=== PATIENT | female | born 1990 | race Caucasian/White ===

== ENCOUNTER → 2021-11-29 | Outpatient (CLI) | payer OTHER | LOC: M WHC 11:07 | PROVIDERS: ATTEND Physician Assistant | DX: N63.21 Unspecified lump in the left breast, upper outer quadrant (principal) | CPT/HCPCS: 77066; G0279 ==

== ENCOUNTER 2022-05-17 07:23 | Emergency (ER) | payer OTHER ==
[~2022-05-17] VITALS: Ht 162.6 cm; Wt 93.2 kg
[2022-05-17] MEDS ORDERED: KETOROLAC 60MG 2ML VIAL IM ONE (07:45)
[2022-05-17] MEDS ORDERED: LIDOCAINE 5% (LIDODERM) PATCH TD ONE (07:45)
[2022-05-17] MEDS ORDERED: LIDO5DIS41 TOP (07:51)
[2022-05-17 08:52] VITALS: BP 136/72
== END 2022-05-17 08:50 | disposition home or self-care (01) ==
LOC: M ED 07:23 → MERGE 07:23 → M ED 08:50
DX: S16.1XXA Strain of muscle, fascia and tendon at neck level, initial encounter (principal); Z88.0 Allergy status to penicillin; Z79.891 Long term (current) use of opiate analgesic
CPT/HCPCS: 96372; 99283; J1885

== ENCOUNTER → 2022-10-29 | Outpatient (CLI) | payer OTHER ==
[~2022-10-29] MED LIST: LIDO5DIS41 TOP
== END ==
LOC: M WHC 11:55
PROVIDERS: ATTEND Physician Assistant
DX: N64.4 Mastodynia (principal)
CPT/HCPCS: 77066; G0279